=== PATIENT | male | born 1990 | race Caucasian/White ===

== ENCOUNTER 2016-07-13 18:26 | Emergency (ER) | payer OTHER ==
[~2016-07-13] VITALS: Ht 185.4 cm; Wt 127.0 kg
[~2016-07-13 18:26] MED LIST: ALBUTEROL-200 PUFFS/ IH; ALBUTEROL2.5 MG/NEB IN; NOMEDS *; TAMIFLU 75MG CA75 MG PO; ZOFRAN ODT4 MG PO; ZYRTEC 10MG TAB10 MG PO
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
[2016-07-13 19:03] LABS: URINE BILIRUBIN - DIPSTICK NEGATIVE (NEG); URINE BLOOD NEGATIVE (NEG)
[2016-07-13 19:09] LABS: URINE SQUAMOUS CELLS OCC #/hpf (OCC)
[2016-07-13 19:20] LABS: HEMOGLOBIN 15.5 g/dL (14.1-18.0); LYMPH # 2.2 K/mm3 (0.7-4.5); LYMPH % 17.2 % (10-50)
[2016-07-13 20:14] VITALS: BP 169/94
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
== END 2016-07-13 20:15 | disposition home or self-care (01) ==
LOC: ER 18:26
PROVIDERS: Emergency Medicine
DX: S40.012A Contusion of left shoulder, initial encounter (principal); S20.212A Contusion of left front wall of thorax, initial encounter; V43.52XA Car driver injured in collision with other type car in traffic accident, initial encounter; Y92.414 Local residential or business street as the place of occurrence of the external cause
CPT/HCPCS: Q9967